=== PATIENT | female | born 1980 | race African-American/Black ===

== ENCOUNTER 2017-06-29 12:55 | Emergency (ER) | payer MEDICAID ==
[~2017-06-29 12:55] MED LIST: BACT800T5 PO; CEPH500C3 PO
[2017-06-29 12:57] VITALS: BP 119/73; PULSE 86; RESP 14; TEMP 98.1; O2SAT 97
[2017-06-29] MEDS ORDERED: BROMSYP PO (14:10)
[2017-06-29] MEDS ORDERED: AUGM875T3 PO (14:10)
[2017-06-29] MEDS ORDERED: FLUT1SPR5 EACH NARE (14:10)
--- NOTE | 2017-06-29 14:13 | PD ---
HPI Chief Complaint: Cold / Flu Symptoms Time Seen by Provider: 13:29 Travel History International Travel<30 days: No Contact w/Intl Traveler<30days: No Traveled to known affect area: No History of Present Illness HPI 36 year old female here with cough, congestion, left ear pain and pressure. Symptoms started 1 week ago. The cough is productive of sputum. She has not been using the hkgf-veu-eslrrzj medications for symptom relief. Denies fevers, chills, shortness of breath, rash, recent travel. No other complaints. PFSH Past Medical History Diabetes: No Diminished Hearing: No Immunizations Current: Yes : 4 Para: 3 Miscarriage: 1 Ectopic : Yes (RIGHT FALLOPIAN TUBE REMOVED 2002) Past Surgical History Section: Yes (X's 3) Social History Alcohol Use: Yes (OCCAS) Tobacco Use: No Substance Use: No Allergies-Medications (Allergen,Severity, Reaction): Coded Allergies: *MDRO Multi-Drug Resistant Organism (Verified Allergy, Unknown, 09/13/15) MRSA (leg wound) 2012; (abdomen wound) 03/2015; (neck) 08/2015 Reported Meds & Prescriptions Reported Meds & Active Scripts Active Bromfed DM Liq (Mvpswnitqruuasi-Cvuxbmjzhiuphvp-OL Liq) 30-2-10 Mg/5 Ml Syrp 5 Ml PO Q6H PRN Flonase Nasal [place] (Fluticasone Nasal [place]) 50 Mcg/Act [place] 100 Mcg EACH NARE BID Augmentin (Amoxicillin-Clavulanate) 875-125 Mg Tab 1 Tab PO BID 10 Days Keflex (Cephalexin Monohydrate) 500 Mg Cap 500 Mg PO Q6HR 10 Days Bactrim DS (Sulfamethoxazole-Trimethoprim DS) 1 Tab Tab 1 Tab PO Q12HR 10 Days Review of Systems Except as stated in HPI: all other systems reviewed are Neg Physical Exam Narrative GENERAL: Well-developed well-nourished female in no acute distress SKIN: Warm and dry. HEAD: Atraumatic. Normocephalic. EYES: Pupils equal and round. No scleral icterus. No injection or drainage. ENT: No nasal bleeding or discharge. Mucous membranes pink and moist. Left tympanic membrane is bulging and erythematous. NECK: Trachea midline. No JVD. CARDIOVASCULAR: Regular rate and rhythm. No murmur appreciated. RESPIRATORY: No accessory muscle use. Clear to auscultation. Breath sounds equal bilaterally. No crackles no wheezing or rhonchi Data Data Last Documented VS Vital Signs Date Time Temp Pulse Resp B/P (MAP) Pulse Ox O2 Delivery O2 Flow Rate FiO2 06/29/17 12:57 98.1 86 14 119/73 (88) 97 MDM Medical Decision Making Medical Screen Exam Complete: Yes Emergency Medical Condition: Yes Medical Record Reviewed: Yes Differential Diagnosis Bronchitis, pneumonia, sinusitis, eustachian tube dysfunction, otitis media Narrative Course Examination is consistent with bronchitis, otitis media. The patient is being discharged with Augmentin, Flonase, Bromfed. Diagnosis Primary Impression: Left otitis media Additional Impression: Bronchitis Patient Instructions: Acute Bronchitis (ED), General Instructions, Serous Otitis Media (ED) Additional Instructions: Medication as prescribed. Return for any emergent medical conditions. Med/Other Pt SpecificInfo: Prescription(s) given Scripts Qfkldxdixuuggfq-Doebvlyrodrgsnk-JE Liq (Bromfed DM Liq) 30-2-10 Mg/5 Ml Syrp 5 ML PO Q6H Y for COUGH AND/OR COLD SYMPTOMS, #1 BOTTLE 0 Refills Prov: Truman Bundy MD 06/29/17 Fluticasone Nasal [place] (Flonase Nasal [place]) 50 Mcg/Act [place] 100 MCG EACH NARE BID for Allergies, #1 BOTTLE 0 Refills Prov: Truman Bundy MD 06/29/17 Amoxicillin-Clavulanate (Augmentin) 875-125 Mg Tab 1 TAB PO BID for Infection for 10 Days, #20 TAB 0 Refills Prov: Truman Bundy MD 06/29/17 Disposition: 01 DISCHARGE HOME Condition: Stable Carlos Mon Jun 29, 2017 14:13
== END 2017-06-29 14:20 | disposition home or self-care (01) ==
LOC: NEPK 12:55
DX: H66.92 Otitis media, unspecified, left ear (principal); J40 Bronchitis, not specified as acute or chronic
CPT/HCPCS: 99283